=== PATIENT | female | born 1935 | race Caucasian/White ===

== ENCOUNTER 2025-06-23 12:03 | Outpatient (AMB) | payer OTHER, SELFPAY ==
--- NOTE | 2025-06-23 12:23 | A.OFFVIS_ITS ---
Intake Visit Reasons: 6m AD Allergies No Known Allergies Allergy (Verified 06/19/25 09:53) HPI Comments Details: 89 years old woman with dementia with behavioral symptoms. Apparently she was having a lot of visual hallucinations and confusion. She was seeing things and thinking that she was outside the home while she was inside. This was happening more so at night. [facility] Medical History (Updated 06/23/25 @ 12:25 by Amanda Meehan MD) HTN (hypertension) Review of Systems Narrative Constitutional:?No fever, chills, fatigue, weight loss, or night sweats. HEENT:?No headache, vision changes, hearing loss, nasal congestion, sore throat. Neurological:?No dizziness, syncope, seizures, numbness, tingling, weakness, tremors,. Psychiatric:? Visual hallucinations. Endocrine:?No heat/cold intolerance, polydipsia, polyuria, or hair/skin changes. Hematologic/Lymphatic:?No easy bruising, bleeding, or lymphadenopathy. Integumentary (Skin):?No rash, lesions, itching, or color changes. ? Physical Exam Neuro Other: Mental Status: Alert and awake pleasant smiling following commands. Cranial Nerves: CN II: Visual mera full to confrontation, visual acuity intact. CN III, IV, : Pupils equal, round, reactive to light and accommodation. Extraocular movements are normal. CN V: Facial sensation is normal. CN VII: Facial movements symmetrical. CN VIII: Hearing intact to bedside conversation is normal. CN IX, X: Palate elevates symmetrically. CN XI: Shoulder shrug and head turn symmetrical. CN XII: Tongue midline without atrophy or fasciculations. Extrapyramidal: Full facial expressions and blinking. No rigidity. Movements are appropriate with no tremor or abnormality. Speech: Normal; no dysarthria or tremor. 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 Her family was advised to give her sertraline 25 mg in the morning and start quetiapine 25 mg at bedtime. Medications: New sertraline 25 mg PO DAILY 90 tabs 0RF quetiapine 25 mg PO BEDTIME 90 tabs 0RF Coding Level of Care Code Est Pt Level 4 (26236) Diagnoses Multifactorial dementia F03.90
== END 2025-06-23 12:34 | disposition home or self-care (01) ==
LOC: HO.HSM 12:03
PROVIDERS: PCP Internal Medicine; Visit Provider Psychiatry & Neurology Neurology
DX: F03.90 Unspecified dementia, unspecified severity, without behavioral disturbance, psychotic disturbance, mood disturbance, and anxiety (principal)
CPT/HCPCS: 99214